=== PATIENT | male | born 1940 | race Caucasian/White ===

== ENCOUNTER 2018-04-05 18:22 | Emergency (ER) | payer OTHER ==
[2018-04-05] MEDS ORDERED: NA CHLORIDE 0.9% 1,000 ML ONE (19:25)
[2018-04-05 19:36] LABS: Absolute Lymphocytes (CBC) 1.5 K/uL (0.7-4.9); Absolute Monocytes 0.5 K/uL (0.1-1.3); Absolute Neutrophil 4.6 K/uL (1.8-8.0); Basophils % 0.5 % (0-1.3); Eosinophils % 1.5 % (0-4.4); Hematocrit 36.7 % (39.6-49.0); Lymphocytes % 22.8 % (15.3-44.8); MCH 27.3 pg (27.0-35.0); MCV 78.8 fL (80-100); MPV 7.9 fL (7.6-11.3); RBC Red Blood Cell Count 4.66 M/uL (4.33-5.43)
[2018-04-05 19:37] LABS: Protime INR 3.41
[2018-04-05 20:03] LABS: ALT/SGPT 15 U/L (12-78); AST/SGOT 13 U/L (15-37); Alkaline Phosphatase 94 U/L (45-117); BUN Blood Urea Nitrogen 19 mg/dL (7-18); Bicarbonate 25 mmol/L (21-32); Bilirubin Direct 0.2 mg/dL (0-0.2); Bilirubin Total 0.7 mg/dL (0.2-1.0); Lipase 1153 U/L (73-393); Magnesium 2.2 mg/dL (1.8-2.4); NT PRO-BNP 893 pg/mL (<450); Potassium 4.4 mmol/L (3.5-5.1); Protein, Total 6.8 g/dL (6.4-8.2); Sodium Level 128 mmol/L (136-145); Troponin (Emerg Dept Use Only) < 0.02 ng/mL (0.0-0.045)
[2018-04-05 20:04] LABS: Glucose Level 438 mg/dL (74-106)
[2018-04-05] MEDS ORDERED: INSULIN -REGULAR HUMAN 50 UNIT/0.5 ML ML ONE (20:41)
--- NOTE | 2018-04-05 20:48 | RAD REPORT ---
EXAM DESCRIPTION: CT - Abdomen Pelvis Wo Contrast - 04/05/2018 8:37 pm CLINICAL HISTORY: Abdominal pain. ABD PAIN COMPARISON: No comparisons TECHNIQUE: CT imaging of the abdomen and pelvis was performed without contrast. Solid organ, bowel a nd vascular assessment is limited due to lack of IV and oral contrast. All CT scans are performed using dose optimization technique as appropriate and may include automated exposure control or mA/KV adjustment according to patient size. FINDINGS: Left inferior pleural thickening is noted. Noncontrast liver and spleen assessment is unremarkable. Cholecystectomy clips are seen. Numerous graham cifications are seen in the pancreas compatible with chronic pancreatitis. The adrenal glands and kid neys show no acute process. No bowel obstruction, free air, free fluid or abscess. The appendix appears absent. Prominent sigmoi d diverticulosis coli without diverticulitis. Small fat containing ventral hernia. Aortic atheroscler osis. The osseous structures are within normal limits. IMPRESSION: Chronic pancreatitis. Sigmoid diverticulosis coli without diverticulitis. A limited non-contrast examination was performed as detailed.
[2018-04-05] MEDS ORDERED: INSULIN GLARGINE 100 UNITS/ML SQ ONE (20:51)
--- NOTE | 2018-04-05 21:08 | EDPHYS ---
Physician Documentation [facility] Name: Pito Elizabeth Jr Age: 78 yrs Sex: Male : 1940 Arrival Date: 04/05/2018 Time: 18:24 Bed 8 Private MD: Jethro Huston V ED Physician Speedy Ashley HPI: 04/05 19:48 This 78 yrs old Male presents to ER via Wheelchair with complaints of High juarez Blood Sugar. 19:48 The patient or guardian reports hyperglycemia. Onset: The symptoms/episode juarez began/occurred today. Associated signs and symptoms: Pertinent positives: None. Pertinent negatives: None. Current symptoms: In the emergency department the patient's symptoms are unchanged from the initial presentation. The patient has not experienced similar symptoms in the past. Historical: - Allergies: 18:40 Iodine; aa5 - PMHx: 18:40 Diabetes - NIDDM; Atrial Fib; Hypertension; aa5 - PSHx: 18:40 Aortic Valve replacement; CABG; aa5 - Immunization history:: Adult Immunizations up to date. - Ebola Screening: : No symptoms or risks identified at this time. - Social history:: Smoking status: Patient/guardian denies using tobacco. - Family history:: not pertinent. ROS: 19:48 Constitutional: Negative for fever, chills, and weight loss, Eyes: Negative for injury, juarez pain, redness, and discharge, ENT: Negative for injury, pain, and discharge, Neck: Negative for injury, pain, and swelling, Cardiovascular: Negative for chest pain, palpitations, and edema, Respiratory: Negative for shortness of breath, cough, wheezing, and pleuritic chest pain, Abdomen/GI: Negative for abdominal pain, nausea, vomiting, diarrhea, and constipation, Back: Negative for injury and pain, : Negative for injury, bleeding, discharge, and swelling, MS/Extremity: Negative for injury and deformity, Skin: Negative for injury, rash, and discoloration, Neuro: Negative for headache, weakness, numbness, tingling, and seizure, Psych: Negative for depression, anxiety, suicide ideation, homicidal ideation, and hallucinations, Allergy/Immunology: Negative for hives, rash, and allergies, Hematologic/Lymphatic: Negative for swollen nodes, abnormal bleeding, and unusual bruising. 19:48 Endocrine: Positive for polyuria. Exam: 19:48 Constitutional: This is a well developed, well nourished patient who is awake, alert, juarez and in no acute distress. Head/Face: Normocephalic, atraumatic. Eyes: Pupils equal round and reactive to light, extra-ocular motions intact. Lids and lashes normal. Conjunctiva and sclera are non-icteric and not injected. Cornea within normal limits. Periorbital areas with no swelling, redness, or edema. ENT: Nares patent. No nasal discharge, no septal abnormalities noted. Tympanic membranes are normal and external auditory canals are clear. Oropharynx with no redness, swelling, or masses, exudates, or evidence of obstruction, uvula midline. Mucous membranes moist. Neck: Trachea midline, no thyromegaly or masses palpated, and no cervical lymphadenopathy. Supple, full range of motion without nuchal rigidity, or vertebral point tenderness. No Meningismus. Chest/axilla: Normal chest wall appearance and motion. Nontender with no deformity. No lesions are appreciated. Cardiovascular: Regular rate and rhythm with a normal S1 and S2. No gallops, murmurs, or rubs. Normal PMI, no JVD. No pulse deficits. Respiratory: Lungs have equal breath sounds bilaterally, clear to auscultation and percussion. No rales, rhonchi or wheezes noted. No increased work of breathing, no retractions or nasal flaring. Back: No spinal tenderness. No costovertebral tenderness. Full range of motion. Male : Normal genitalia with no discharge or lesions. Skin: Warm, dry with normal turgor. Normal color with no rashes, no lesions, and no evidence of cellulitis. MS/ Extremity: Pulses equal, no cyanosis. Neurovascular intact. Full, normal range of motion. Neuro: Awake and alert, GCS 15, oriented to person, place, time, and situation. Cranial nerves II-XII grossly intact. Motor strength 5/5 in all extremities. Sensory grossly intact. Cerebellar exam normal. Normal gait. Psych: Awake, alert, with orientation to person, place and time. Behavior, mood, and affect are within normal limits. 19:48 Abdomen/GI: Inspection: abdomen appears normal, Bowel sounds: normal, Palpation: abdomen is soft and non-tender, Indicators: Liver: Hernia: not appreciated. Vital Signs: 18:39 BP 98 / 72; Pulse 84; Resp 18 S; Temp 97.4(TE); Pulse Ox 98% on R/A; Weight 124.28 kg; aa5 Pain 0/10; 20:24 BP 95 / 60; Pulse 75; Resp 18; Pulse Ox 99% on R/A; Pain 0/10; aa1 21:50 BP 119 / 77; Pulse 77; Resp 18; Pulse Ox 99% on R/A; Pain 0/10; aa1 MDM: 19:06 Patient medically screened. [facility] 19:52 Data reviewed: vital signs, nurses notes, lab test result(s), EKG, radiologic studies. [facility] 04/05 19:08 Order name: Basic Metabolic Panel; Complete Time: 20:10 [facility] 04/05 19:08 Order name: CBC with Diff; Complete Time: 19:48 [facility] 04/05 19:08 Order name: LFT's; Complete Time: 20:10 [facility] 04/05 19:08 Order name: Magnesium; Complete Time: 20:10 [facility] 04/05 19:08 Order name: NT PRO-BNP; Complete Time: 20:10 [facility] 04/05 19:08 Order name: PT-INR; Complete Time: 19:48 [facility] 04/05 19:08 Order name: Troponin (emerg Dept Use Only); Complete Time: 20:10 [facility] 04/05 19:08 Order name: Lipase; Complete Time: 20:10 [facility] 04/05 19:08 Order name: Urine Culture [facility] 04/05 19:08 Order name: TSH; Complete Time: 20:10 [facility] 04/05 20:11 Order name: CT Abd/Pelvis - Without Cont; Complete Time: 20:59 [facility] 04/05 21:49 Order name: Urine Dipstick--Ancillary (enter results) hi 04/05 19:08 Order name: EKG; Complete Time: 19:09 [facility] 04/05 19:08 Order name: Cardiac monitoring; Complete Time: 19:13 [facility] 04/05 19:08 Order name: EKG - Nurse/Tech; Complete Time: 19:26 [facility] 04/05 19:08 Order name: IV Saline Lock; Complete Time: 19:26 [facility] 04/05 19:08 Order name: Labs collected and sent; Complete Time: 19:26 [facility] 04/05 19:08 Order name: O2 Per Protocol; Complete Time: 19:13 [facility] 04/05 19:08 Order name: O2 Sat Monitoring; Complete Time: 19:13 [facility] 04/05 19:08 Order name: Urine Dipstick-Ancillary (obtain specimen); Complete Time: 21:49 [facility] 04/05 21:05 Order name: Blood Glucose Level; Complete Time: 21:47 [facility] Administered Medications: 19:25 Drug: NS 0.9% 1000 ml Route: IV; Rate: 1 bolus; Site: right wrist; aa1 20:30 Follow up: IV Status: Completed infusion aa1 21:00 Drug: Insulin Regular Human 10 units {Co-Signature: tl2 (Alecia Valencia RN).} Route: IVP; aa1 Site: right wrist; 21:47 Follow up: Response: No adverse reaction; Blood sugar is lowered aa1 21:00 Drug: LanTUS 30 units Route: Sub-Q; Site: right upper arm; aa1 21:47 Follow up: Response: No adverse reaction; Blood sugar is lowered aa1 Point of Care Testing: Blood Glucose: 18:39 Blood Glucose: 385 mg/dL; aa5 20:35 Blood Glucose: 387 mg/dL; aa1 Ranges: Critical Glucose Levels:Adult <50 mg/dl or >400 mg/dl <40 mg/dl or >180 mg/dl Disposition: 04/05/18 21:07 Discharged to Home. Impression: Type 2 diabetes mellitus, Obesity, unspecified, Unspecified kidney failure, Other chronic pancreatitis. - Condition is Stable. - Discharge Instructions: Type 2 Diabetes Mellitus, Diagnosis, Adult, Obesity, Adult, Chronic Kidney Disease, Adult, [id number]-Vigd, Type 2 Diabetes Mellitus, Diagnosis, Adult, Joqa-st-Tisv, Obesity, Adult, Phha-sm-Oqrj. - Prescriptions for Lantus 100 unit/mL Subcutaneous solution - inject 20 unit by SUBCUTANEOUS route as directed; 100 unit. - Medication Reconciliation Form, Thank You Letter, Antibiotic Education, Prescription Opioid Use form. - Follow up: Jethro Huston; When: 2 - 3 days; Reason: Recheck today's complaints, Continuance of care, Re-evaluation by your physician. - Problem is new. - Symptoms have improved. Signatures: Dispatcher [employer] Roxanne Ward RN RN ch Kern, Alissa, RN RN aa1 Speedy Ashley MD MD cha Calderon, Audri, RN RN aa5 Alecia Valencia RN tl2 Corrections: (The following items were deleted from the chart) 19:39 19:09 Chest Single View+RAD.RAD.BRZ ordered. EDMS EDMS 22:00 21:07 04/05/2018 21:07 Discharged to Home. Impression: Type 2 diabetes mellitus; aa1 Obesity, unspecified; Unspecified kidney failure; Other chronic pancreatitis. Condition is Stable. Discharge Instructions: Type 2 Diabetes Mellitus, Diagnosis, Adult, Obesity, Adult, Chronic Kidney Disease, Adult, Gtfu-dz-Gilp, Type 2 Diabetes Mellitus, Diagnosis, Adult, Ltld-yx-Tegc, Obesity, Adult, Shjx-um-Noau. Prescriptions for Lantus 100 unit/mL Subcutaneous solution - inject 20 unit by SUBCUTANEOUS route as directed; 100 unit. and Forms are Medication Reconciliation Form, Thank You Letter, Antibiotic Education, Prescription Opioid Use. Follow up: Jethro Huston; When: 2 - 3 days; Reason: Recheck today's complaints, Continuance of care, Re-evaluation by your physician. Problem is new. Symptoms have improved. juarez
--- NOTE | 2018-04-05 21:08 | ER ---
Nurse's Notes [facility] Name: Pito Elizabeth Jr Age: 78 yrs Sex: Male : 1940 Arrival Date: 04/05/2018 Time: 18:24 Bed 8 Private MD: Jethro Huston V Diagnosis: Type 2 diabetes mellitus;Obesity, unspecified;Unspecified kidney failure;Other chronic pancreatitis Presentation: 04/05 18:36 Presenting complaint: Patient states: "my blood sugar was up to 595 today and I just aa5 take Glipizide". Pt denies any symptoms. Transition of care: patient was not received from another setting of care. Onset of symptoms was April 05, 2018. Risk Assessment: Do you want to hurt yourself or someone else? Patient reports no desire to harm self or others. Initial Sepsis Screen: Does the patient meet any 2 criteria? No. Patient's initial sepsis screen is negative. Does the patient have a suspected source of infection? No. Patient's initial sepsis screen is negative. Care prior to arrival: None. 18:36 Method Of Arrival: Wheelchair aa5 18:36 Acuity: GEETHA 3 aa5 Historical: - Allergies: 18:40 Iodine; aa5 - PMHx: 18:40 Diabetes - NIDDM; Atrial Fib; Hypertension; aa5 - PSHx: 18:40 Aortic Valve replacement; CABG; aa5 - Immunization history:: Adult Immunizations up to date. - Ebola Screening: : No symptoms or risks identified at this time. - Social history:: Smoking status: Patient/guardian denies using tobacco. - Family history:: not pertinent. Screenin:59 Abuse screen: Denies threats or abuse. Denies injuries from another. Nutritional ch screening: No deficits noted. Tuberculosis screening: No symptoms or risk factors identified. Fall Risk None identified. Assessment: 18:59 General: Appears in no apparent distress. comfortable, Behavior is calm, cooperative, ch appropriate for age. Pain: Denies pain. Neuro: No deficits noted. Level of Consciousness is awake, alert, obeys commands, Oriented to person, place, time, situation. Respiratory: Airway is patent Respiratory effort is even, unlabored. GI: No signs and/or symptoms were reported involving the gastrointestinal system. Derm: Skin is pink, warm \\T\\ dry. 19:45 Reassessment: Patient appears in no apparent distress at this time. Patient and/or aa1 family updated on plan of care and expected duration. Pain level reassessed. Patient is alert, oriented x 3, equal unlabored respirations, skin warm/dry/pink. Awaiting lab results Patient denies pain at this time. 21:22 Reassessment: Patient appears in no apparent distress at this time. Patient and/or aa1 family updated on plan of care and expected duration. Pain level reassessed. Patient is alert, oriented x 3, equal unlabored respirations, skin warm/dry/pink. D/C ordered however pt just received IV \\T\\ SQ insulin. Will recheck FSBS in 30 mins and d/c at thhat time if appropriate. 21:49 Reassessment: Patient appears in no apparent distress at this time. Patient is alert, aa1 oriented x 3, equal unlabored respirations, skin warm/dry/pink. MD at bedside discussing d/c instructions with f/u with pt. Pt \\T\\ family verbalize understanding of instructions and changes in medication. Vital Signs: 18:39 BP 98 / 72; Pulse 84; Resp 18 S; Temp 97.4(TE); Pulse Ox 98% on R/A; Weight 124.28 kg; aa5 Pain 0/10; 20:24 BP 95 / 60; Pulse 75; Resp 18; Pulse Ox 99% on R/A; Pain 0/10; aa1 21:50 BP 119 / 77; Pulse 77; Resp 18; Pulse Ox 99% on R/A; Pain 0/10; aa1 ED Course: 18:24 Patient arrived in ED. mr 18:24 Jethro Huston MD is Private Physician. mr 18:37 Arm band placed on. aa5 18:42 Triage completed. aa5 18:59 Roxanne Hodges, SRUTHI is Primary Nurse. ch 18:59 No apparent distress. Resting quietly. ch 18:59 Patient has correct armband on for positive identification. Placed in gown. Bed in low ch position. Call light in reach. Side rails up X 1. Pulse ox on. NIBP on. 18:59 No provider procedures requiring assistance completed. ch 19:06 Speedy Ashley MD is Attending Physician. juarez 19:13 Kirsten Donahue, RN is Primary Nurse. aa1 19:20 Initial lab(s) drawn, by me, sent to lab. Inserted saline lock: 22 gauge in right hand, cc using aseptic technique. Blood collected. 20:36 CT completed. Patient tolerated procedure well. Patient moved to CT via stretcher. nh Patient moved back from CT. 20:37 CT Abd/Pelvis - Without Cont In Process Unspecified. EDMS 21:07 Jethro Huston MD is Referral Physician. [facility] 22:00 IV discontinued, intact, bleeding controlled, No redness/swelling at site. Pressure aa1 dressing applied. Administered Medications: 19:25 Drug: NS 0.9% 1000 ml Route: IV; Rate: 1 bolus; Site: right wrist; aa1 20:30 Follow up: IV Status: Completed infusion aa1 21:00 Drug: Insulin Regular Human 10 units {Co-Signature: tl2 (Alecia Valencia RN).} Route: IVP; aa1 Site: right wrist; 21:47 Follow up: Response: No adverse reaction; Blood sugar is lowered aa1 21:00 Drug: LanTUS 30 units Route: Sub-Q; Site: right upper arm; aa1 21:47 Follow up: Response: No adverse reaction; Blood sugar is lowered aa1 Point of Care Testing: Blood Glucose: 18:39 Blood Glucose: 385 mg/dL; aa5 20:35 Blood Glucose: 387 mg/dL; aa1 Ranges: Outcome: 21:07 Discharge ordered by . [facility] 22:00 Discharged to home ambulatory, with family. aa1 22:00 Condition: good 22:00 Discharge instructions given to patient, family, Instructed on discharge instructions, follow up and referral plans. medication usage, Demonstrated understanding of instructions, follow-up care, medications, Prescriptions given X 1. 22:00 Patient left the ED. aa1 Addendum: 04/10/2018 10:46 Addendum: Culture Results: Positive urine culture. Phone call Attempt #1 spoke with s s patient who denies any urinary s/s. Signatures: Dispatcher [employer] EDMD Roxanne Hodges, RN Kirsten Méndez ch, RN RN aa1 Speedy Ashley MD MD cha Rivera, Amie mr Quezada, Shana, RN RN aa5 Simi Orozco RN RN ss Christian, Chelsea cc Jordan, Nathan nj Taylor Knox RN tl2
[2018-04-05 22:20] LABS: Urine Blood NEGATIVE (NEG); Urine Glucose 3+ (NEG); Urine Protein NEGATIVE (NEG)
--- NOTE | 2018-04-06 09:25 | EKG ---
Test Date: 2018-04-05 Test Time: 19:29:56 Ice Cream Dispenser: LEVI MEASUREMENT RESULTS: Intervals: Rate: 78 MD: 296 QRSD: 148 QT: 442 QTc: 503 [place]: P: -24 MD: 296 QRS: 54 T: -7 INTERPRETIVE STATEMENTS: Sinus rhythm with 1st degree AV block Right bundle branch block Abnormal ECG No previous ECG available for comparison Electronically Signed On 04-06-18 09:25:34 CDT by Israel Benjamin
== END 2018-04-05 22:00 | disposition home or self-care (01) ==
LOC: ER 18:22
DX: E11.65 Type 2 diabetes mellitus with hyperglycemia (principal); N19 Unspecified kidney failure; E66.9 Obesity, unspecified; K86.1 Other chronic pancreatitis; I48.91 Unspecified atrial fibrillation; I10 Essential (primary) hypertension; Z95.1 Presence of aortocoronary bypass graft
CPT/HCPCS: 36415; 74176; 80048; 80076; 81003; 82962 ×3; 83690; 83735; 83880; 84443; 84484; 85025; 85610; 87077; 87086; 87088; 87186; 93005; 96361; 96372; 96374; 99284; J7030